=== PATIENT | male | born 1935 | race American Indian/Alaskan Native ===

== ENCOUNTER 2021-11-10 13:24 | Inpatient (IN) | payer MEDICARE ==
[2021-11-10 16:03] LABS: WBC,Urine < 1.0 /HPF (0.0-6.0)
[2021-11-10 16:05] LABS: Color,Urine Yellow (Yellow)
[2021-11-10 16:06] LABS: Bilirubin,Urine Negative (Negative); Blood,Urine Negative (Negative)
[2021-11-10 16:07] LABS: Urobilinogen,Urine < 2.0 mg/dL (<2.0)
--- NOTE | 2021-11-10 16:07 | XRay Report ---
CHEST 1 VIEW 11/10/2021 3:00 PM INDICATION / CLINICAL INFORMATION: weakness. COMPARISON: None available. FINDINGS: SUPPORT DEVICES: None. HEART / MEDIASTINUM: No significant abnormality. LUNGS / PLEURA: Pleural fluid with associated volume loss/consolidation on the right is moderate. No significant left-sided opacity. No pneumothorax. ADDITIONAL FINDINGS: No significant additional findings. IMPRESSION: Right-sided pleural effusion with associated volume loss/consolidation. Signer Name: Mac Castaneda MD Signed: 11/10/2021 4:03 PM Workstation Name: [id number]
--- NOTE | 2021-11-10 16:35 | Emergency Department Report ---
ED General Adult HPI - General Chief complaint: Weakness Stated complaint: FAILURE TO THRIVE Time Seen by Provider: 11/10/21 14:09 Source: patient, EMS Mode of arrival: Stretcher Limitations: Physical Limitation - History of Present Illness Initial comments: The patient presents to the emergency department with his daughter for evaluation for generalized weakness and failure to thrive per the daughter. Patient has a history of prostate cancer as well as renal cancer that has mets testifies to the liver. The patient received his oncology care from [facility] and is on a oral regimen for his cancer. The patient has a history of a right nephrectomy. In June of this year the patient was transferred from [facility] to [place] for a for a brain bleed. In July of this year the patient had a femoral popliteal bypass done at [facility] by Dr. Lyles. This was followed by an admission to [facility] in September of this year for dehydration. The patient has been at home receiving home health care since October 25. The daughter states at times the patient is confused but on my exam he is able to answer questions. He has no complaints besides he does not feel well states he is very weak. -: Gradual Severity scale (0 -10): 0 Consistency: constant Improves with: none Worsens with: none Associated Symptoms: denies other symptoms Treatments Prior to Arrival: none - Related Data Allergies Allergy/AdvReac Type Severity Reaction Status Date / Time No Known Allergies Allergy Verified 11/10/21 13:45 ED Review of Systems ROS: Stated complaint: FAILURE TO THRIVE Other details as noted in HPI Constitutional: weakness. denies: chills, fever Eyes: denies: eye pain, eye discharge, vision change ENT: denies: ear pain, throat pain Respiratory: denies: cough, shortness of breath, wheezing Cardiovascular: denies: chest pain, palpitations Endocrine: no symptoms reported Gastrointestinal: denies: abdominal pain, nausea, diarrhea Genitourinary: denies: urgency, dysuria Musculoskeletal: denies: back pain, joint swelling, arthralgia Skin: denies: rash, lesions Neurological: denies: headache, weakness, paresthesias Psychiatric: denies: anxiety, depression Hematological/Lymphatic: denies: easy bleeding, easy bruising ED Past Medical Hx - Past Medical History Previous Medical History?: Yes Hx Hypertension: Yes Hx Heart Attack/AMI: Yes (2019) Hx Liver Disease: Yes Hx of Cancer: Yes (Kidney, Prostate and spots on Lungs) Hx Arthritis: Yes - Surgical History Past Surgical History?: Yes Hx Coronary Stent: No Hx Open Heart Surgery: No Hx Internal Defibrillator: No Hx Cholecystectomy: No Hx Appendectomy: No Hx Breast Surgery: No - Social History Smoking Status: Former Smoker Substance Use Type: None ED Physical Exam - General Limitations: Physical Limitation General appearance: alert, in no apparent distress - Head Head exam: Present: atraumatic, normocephalic - Eye Eye exam: Present: normal appearance, PERRL, EOMI - ENT ENT exam: Present: mucous membranes dry - Neck Neck exam: Present: normal inspection - Respiratory Respiratory exam: Present: decreased breath sounds. Absent: respiratory distress - Cardiovascular Cardiovascular Exam: Present: normal rhythm, tachycardia - GI/Abdominal GI/Abdominal exam: Present: soft, normal bowel sounds. Absent: distended, tenderness - Neurological Exam Neurological exam: Present: alert, oriented X3, CN II-XII intact. Absent: motor sensory deficit - Psychiatric Psychiatric exam: Present: normal affect, normal mood ED Course Vital Signs 11/10/21 11/10/21 11/10/21 13:53 14:00 14:10 Temperature 97.4 F L Pulse Rate 94 H 89 88 Respiratory 13 16 14 Rate Blood Pressure 109/57 105/63 Blood Pressure 105/63 [Left] O2 Sat by Pulse 98 97 Oximetry 11/10/21 11/10/21 11/10/21 14:16 14:30 14:46 Temperature Pulse Rate 90 86 87 Respiratory 14 20 15 Rate Blood Pressure 105/63 99/58 105/59 Blood Pressure [Left] O2 Sat by Pulse 98 99 97 Oximetry 11/10/21 11/10/21 11/10/21 15:00 15:15 15:30 Temperature Pulse Rate 86 87 91 H Respiratory 12 14 20 Rate Blood Pressure 101/54 106/62 112/58 Blood Pressure [Left] O2 Sat by Pulse 98 98 94 Oximetry 11/10/21 11/10/21 11/10/21 15:46 16:00 16:15 Temperature Pulse Rate 87 86 84 Respiratory 12 13 14 Rate Blood Pressure 114/59 109/62 Blood Pressure 109/62 [Left] O2 Sat by Pulse 88 99 98 Oximetry 11/10/21 11/10/21 11/10/21 16:16 16:30 16:46 Temperature Pulse Rate 87 87 87 Respiratory 30 H 17 19 Rate Blood Pressure 105/59 105/61 97/61 Blood Pressure [Left] O2 Sat by Pulse 98 96 97 Oximetry 11/10/21 11/10/21 11/10/21 17:00 18:00 18:16 Temperature Pulse Rate 88 87 88 Respiratory 14 13 Rate Blood Pressure 105/61 97/61 105/58 Blood Pressure [Left] O2 Sat by Pulse 99 99 Oximetry 11/10/21 11/10/21 11/10/21 18:30 18:45 19:00 Temperature Pulse Rate 88 89 88 Respiratory 13 15 14 Rate Blood Pressure 107/58 107/58 107/58 Blood Pressure [Left] O2 Sat by Pulse 95 98 Oximetry 11/10/21 11/10/21 11/10/21 19:16 19:30 19:45 Temperature Pulse Rate 88 88 89 Respiratory 16 15 13 Rate Blood Pressure 119/48 119/48 120/58 Blood Pressure [Left] O2 Sat by Pulse 85 100 100 Oximetry 11/10/21 11/10/21 11/10/21 20:00 20:16 20:30 Temperature Pulse Rate 91 H 88 93 H Respiratory 13 15 13 Rate Blood Pressure 110/65 104/57 115/55 Blood Pressure [Left] O2 Sat by Pulse 100 99 97 Oximetry 11/10/21 11/10/21 11/10/21 20:46 21:00 21:16 Temperature Pulse Rate 90 94 H 89 Respiratory 15 16 17 Rate Blood Pressure 120/60 104/65 118/52 Blood Pressure [Left] O2 Sat by Pulse 98 99 99 Oximetry ED Medical Decision Making - Lab Data Result diagrams: 11/10/21 20:08 11/10/21 15:12 Lab Results 11/10/21 11/10/21 11/10/21 Range/Units 15:12 15:37 19:45 WBC (4.5-11.0) K/mm3 RBC (3.65-5.03) M/mm3 Hgb (11.8-15.2) gm/dl Hct (35.5-45.6) % MCV (84-94) fl MCH (28-32) pg MCHC (32-34) % RDW (13.2-15.2) % Plt Count (140-440) K/mm3 Lymph % (Auto) (13.4-35.0) % [place] % (Auto) (0.0-7.3) % Eos % (Auto) (0.0-4.3) % Baso % (Auto) (0.0-1.8) % Lymph # (Auto) (1.2-5.4) K/mm3 [place] # (Auto) (0.0-0.8) K/mm3 Eos # (Auto) (0.0-0.4) K/mm3 Baso # (Auto) (0.0-0.1) K/mm3 Seg Neutrophils % (40.0-70.0) % Seg Neutrophils # (1.8-7.7) K/mm3 ABG pH 7.442 (7.350-7.450) pH Units ABG pCO2 27.1 mm Hg ABG pO2 70.8 L (80.0-90.0) mm Hg ABG HCO3 18.1 L (20.0-26.0) mmol/L ABG O2 Saturation 96.1 (95.0-99.0) % ABG O2 Content 11.1 (0.0-44) ABG Base Excess -5.2 L (-2.0-3.0) mmol/L ABG Hemoglobin 8.3 L (14.0-18.0) gm/dl ABG Carboxyhemoglobin 1.9 (0.0-5.0) % ABG Methemoglobin 0.4 (0.0-1.5) % Oxyhemoglobin 93.9 L (95.0-99.0) % FiO2 21 % Sodium 136 L (137-145) mmol/L Potassium 4.8 (3.6-5.0) mmol/L Chloride 105.9 (98-107) mmol/L Carbon Dioxide 14 L (22-30) mmol/L Anion Gap 21 mmol/L BUN 26 H (9-20) mg/dL Creatinine 1.4 H (0.8-1.3) mg/dL Estimated GFR 48 ml/min BUN/Creatinine Ratio 19 % Glucose 70 L (75-100) mg/dL Lactic Acid (0.7-2.0) mmol/L Calcium 8.8 (8.4-10.2) mg/dL Magnesium 2.70 H (1.7-2.3) mg/dL Total Bilirubin 0.90 (0.1-1.2) mg/dL AST 21 (5-40) units/L ALT < 5 L (7-56) units/L Alkaline Phosphatase 184 H (35-129) units/L Total Creatine Kinase 67 (55-170) units/L Troponin T 0.034 H (0.00-0.029) ng/mL Total Protein 6.1 L (6.3-8.2) g/dL Albumin 1.8 L (3.9-5) g/dL Albumin/Globulin Ratio 0.4 % Triglycerides 159 H (2-149) mg/dL Cholesterol 148 (50-199) mg/dL LDL Cholesterol Direct 81 (50-130) mg/dL HDL Cholesterol 29 L (40-59) mg/dL Cholesterol/HDL Ratio 5.10 % Urine Color Yellow (Yellow) Urine Turbidity Clear (Clear) Urine pH 7.0 (5.0-7.0) Ur Specific [place] 1.010 (1.003-1.030) Urine Protein 30 mg/dl (Negative) mg/dL Urine Glucose (UA) Negative (Negative) mg/dL Urine Ketones 15 (Negative) mg/dL Urine Blood Negative (Negative) Urine Nitrite Negative (Negative) Ur Reducing Substances Not Reportable Urine Bilirubin Negative (Negative) Urine Ictotest Not Reportable Urine Urobilinogen < 2.0 (<2.0) mg/dL Ur Leukocyte Esterase Negative (Negative) Urine WBC (Auto) < 1.0 (0.0-6.0) /HPF Urine RBC (Auto) 2.0 (0.0-6.0) /HPF U Epithel Cells (Auto) 2.0 (0-13.0) /HPF 11/10/21 11/10/21 Range/Units 20:08 20:08 WBC 4.3 L (4.5-11.0) K/mm3 RBC 2.91 L (3.65-5.03) M/mm3 Hgb 8.6 L (11.8-15.2) gm/dl Hct 28.7 L (35.5-45.6) % MCV 99 H (84-94) fl MCH 30 (28-32) pg MCHC 30 L (32-34) % RDW 18.6 H (13.2-15.2) % Plt Count 140 (140-440) K/mm3 Lymph % (Auto) 21.6 (13.4-35.0) % [place] % (Auto) 8.6 H (0.0-7.3) % Eos % (Auto) 1.5 (0.0-4.3) % Baso % (Auto) 0.4 (0.0-1.8) % Lymph # (Auto) 0.9 L (1.2-5.4) K/mm3 [place] # (Auto) 0.4 (0.0-0.8) K/mm3 Eos # (Auto) 0.1 (0.0-0.4) K/mm3 Baso # (Auto) 0.0 (0.0-0.1) K/mm3 Seg Neutrophils % 67.9 (40.0-70.0) % Seg Neutrophils # 2.9 (1.8-7.7) K/mm3 ABG pH (7.350-7.450) pH Units ABG pCO2 mm Hg ABG pO2 (80.0-90.0) mm Hg ABG HCO3 (20.0-26.0) mmol/L ABG O2 Saturation (95.0-99.0) % ABG O2 Content (0.0-44) ABG Base Excess (-2.0-3.0) mmol/L ABG Hemoglobin (14.0-18.0) gm/dl ABG Carboxyhemoglobin (0.0-5.0) % ABG Methemoglobin (0.0-1.5) % Oxyhemoglobin (95.0-99.0) % FiO2 % Sodium (137-145) mmol/L Potassium (3.6-5.0) mmol/L Chloride (98-107) mmol/L Carbon Dioxide (22-30) mmol/L Anion Gap mmol/L BUN (9-20) mg/dL Creatinine (0.8-1.3) mg/dL Estimated GFR ml/min BUN/Creatinine Ratio % Glucose (75-100) mg/dL Lactic Acid 2.10 H* (0.7-2.0) mmol/L Calcium (8.4-10.2) mg/dL Magnesium (1.7-2.3) mg/dL Total Bilirubin (0.1-1.2) mg/dL AST (5-40) units/L ALT (7-56) units/L Alkaline Phosphatase (35-129) units/L Total Creatine Kinase (55-170) units/L Troponin T (0.00-0.029) ng/mL Total Protein (6.3-8.2) g/dL Albumin (3.9-5) g/dL Albumin/Globulin Ratio % Triglycerides (2-149) mg/dL Cholesterol (50-199) mg/dL LDL Cholesterol Direct (50-130) mg/dL HDL Cholesterol (40-59) mg/dL Cholesterol/HDL Ratio % Urine Color (Yellow) Urine Turbidity (Clear) Urine pH (5.0-7.0) Ur Specific [place] (1.003-1.030) Urine Protein (Negative) mg/dL Urine Glucose (UA) (Negative) mg/dL Urine Ketones (Negative) mg/dL Urine Blood (Negative) Urine Nitrite (Negative) Ur Reducing Substances Urine Bilirubin (Negative) Urine Ictotest Urine Urobilinogen (<2.0) mg/dL Ur Leukocyte Esterase (Negative) Urine WBC (Auto) (0.0-6.0) /HPF Urine RBC (Auto) (0.0-6.0) /HPF U Epithel Cells (Auto) (0-13.0) /HPF - EKG Data -: EKG Interpreted by Mo EKG shows normal: sinus rhythm Rate: normal - Radiology Data Radiology results: report reviewed - Medical Decision Making IV Lasix given Results discussed with the patient's daughter IV antibiotics initiated Critical Care Time: Yes Critical care time in (mins) excluding proc time.: 35 Critical care attestation.: If time is entered above; I have spent that time in minutes in the direct care of this critically ill patient, excluding procedure time. ED Disposition Clinical Impression: Pleural effusion, Hypoxia Disposition: ADMITTED INPATIENT Is pt being admited?: Yes Does the pt Need Aspirin: No Condition: Fair Referrals: PRIMARY CARE, [Primary Care Provider] - 3-5 Days
[2021-11-10 16:47] LABS: Albumin 1.8 g/dL (3.9-5); BUN/Creatinine Ratio 19; Blood Urea Nitrogen 26 mg/dL (9-20); Calcium 8.8 mg/dL (8.4-10.2); Hemolysis Index 32
[2021-11-10 16:51] LABS: Alanine Aminotransferase < 5 units/L (7-56)
[2021-11-10 16:58] LABS: HDL Cholesterol 29 mg/dL (40-59); LDL Cholesterol,Direct 81 mg/dL (50-130)
--- NOTE | 2021-11-10 17:27 | Cat Scan Report ---
CT chest without contrast INDICATION : pleural effusion. TECHNIQUE: Axial imaging performed through the chest without the use of intravenous contrast. All C T scans at this location are performed using CT dose reduction for ALARA by means of automated exposu re control. COMPARISON: Chest x-ray from today FINDINGS: There is a moderate to large right-sided pleural effusion with underlying patchy airspace disease likely at least in part representing compressive atelectasis. Moderate pleural nodularity is seen on the right. Moderate emphysema is present with a few scattered pulmonary nodules throughout celia th lungs worrisome for metastatic disease. The largest referenced nodule is in the left lower lobe me asuring 1.3 x 0.7 cm on image 101 of series 2. Normal heart size. Moderate coronary artery calcification. Several [place] mediastinal and hilar lymph nodes are present. Limited imaging of the upper abdomen shows extensively heterogeneous areas of the liver suggesting un derlying metastatic disease. On bone windows, there are multiple sclerotic metastatic lesions primarily throughout the spine but a lso involving the sternum and a few ribs. IMPRESSION: Findings of metastatic disease as outlined above with moderate to large right-sided pleur al effusion. Signer Name: Maxwell Munoz MD Signed: 11/10/2021 5:23 PM Workstation Name: [id number]
--- NOTE | 2021-11-10 17:31 | Cat Scan Report ---
CT head without contrast INDICATION : ams. TECHNIQUE: Axial imaging performed from the skull apex through the skull base without the use of con trast. All CT scans at this location are performed using CT dose reduction for ALARA by means of aut omated exposure control. COMPARISON: None FINDINGS: Parenchyma: No mass, stroke or hemorrhage. Mild diffuse cerebral atrophy. Mild low density within the periventricular white matter typical of chronic small vessel ischemic change. Ventricles: Ventricles are normal in size and appear symmetric. Soft tissues: Soft tissues including the orbits appear normal. Bones: No acute osseous abnormality. Sinuses: Moderate air-fluid level right maxillary sinus. IMPRESSION: 1. Chronic changes of atrophy and chronic small vessel ischemia. 2. Moderate size air-fluid level right maxillary sinus. Signer Name: Mac Castaneda MD Signed: 11/10/2021 5:26 PM Workstation Name: [id number]
[2021-11-10 20:05] LABS: ABG Base Excess -5.2 mmol/L (-2.0-3.0); ABG HCO3 18.1 mmol/L (20.0-26.0); ABG Methemoglobin 0.4 % (0.0-1.5); ABG Oxygen Saturation 96.1 % (95.0-99.0); ABG PCO2 27.1 mm Hg; ABG PH 7.442 pH Units (7.350-7.450); ABG PO2 70.8 mm Hg (80.0-90.0)
[2021-11-10 20:54] LABS: Hematocrit 28.7 % (35.5-45.6); Hemoglobin 8.6 gm/dl (11.8-15.2); Mean Corpuscular HGB Conc 30 % (32-34); Mean Corpuscular Volume 99 fl (84-94); Platelet Count 140 K/mm3 (140-440); Red Blood Count 2.91 M/mm3 (3.65-5.03); Red Cell Distribution Width 18.6 % (13.2-15.2)
[2021-11-10 20:55] LABS: Basophils % (Auto) 0.4 % (0.0-1.8); Eosinophils % (Auto) 1.5 % (0.0-4.3); Lymphocytes # (Auto) 0.9 K/mm3 (1.2-5.4); Lymphocytes % (Auto) 21.6 % (13.4-35.0); Monocytes % (Auto) 8.6 % (0.0-7.3)
[2021-11-10 20:56] LABS: Eosinophils # (Auto) 0.1 K/mm3 (0.0-0.4); Monocytes # (Auto) 0.4 K/mm3 (0.0-0.8)
[2021-11-10] MEDS ORDERED: CEFEPIME/NS 2 GM/100 ML 2 GM/100 ML BAG IV ONE (22:24)
[2021-11-10] MEDS ORDERED: FUROSEMIDE 40 MG/4 ML INJ IV ONE (22:34)
[2021-11-10] MEDS ORDERED: MORPHINE 2 MG/1 ML INJ IV PRN (22:59)
[2021-11-10] MEDS ORDERED: ACETAMINOPHEN 325 MG TAB PO PRN (22:59)
[2021-11-10] MEDS ORDERED: MORPHINE 4 MG/1 ML INJ IV PRN (22:59)
[2021-11-10] MEDS ORDERED: ONDANSETRON 4 MG/2 ML INJ IV PRN (22:59)
[2021-11-10] MEDS ORDERED: ALBUTEROL 2.5 MG/3 ML NEBU IH PRN (22:59)
--- NOTE | 2021-11-10 23:05 | History and Physical Report ---
History of Present Illness Date of examination: 11/10/21 Date of admission: 11/10/21 Chief complaint: Weakness Hypoxia Failure to thrive History of present illness: 86 years old male with history of renal cancer as well as prostate cancer mets to the liver was brought to the emergency room with his daughter for evaluation for generalized weakness and failure to thrive per the daughter. The patient received his oncology care from [facility] and is on a oral regimen for his cancer. The patient has a history of a right nephrectomy. In June of this year the patient was transferred from [facility] to [place] for a for a brain bleed. In July of this year the patient had a femoral popliteal bypass done at [facility] by Dr. Lyles. This was followed by an admission to [facility] in September of this year for dehydration. The patient has been at home receiving home health care since October 25. The daughter states at times the patient is confused but on my exam he is able to answer questions. He has no complaints besides he does not feel well states he is very weak. In the emergency room CT scan of the chest shows metastatic disease with moderate to large right-sided pleural effusion, patient also hypoxic. We are going to admit the patient, we will put the patient on neb treatment and Lasix and consult nutritional evaluation Past History Past Medical History: acute ID, arthritis, hypertension, liver disease (Hx of Cancer: Yes (Kidney, Prostate and spots on Lungs)) Past Surgical History: No surgical history Social history: smoking Family history: hypertension Medications and Allergies Allergies Allergy/AdvReac Type Severity Reaction Status Date / Time No Known Allergies Allergy Verified 11/10/21 13:45 Review of Systems All systems: negative Constitutional: fatigue, weakness, malaise, lethargy, other (Shortness of breath) Exam - Constitutional Vitals: Temp Pulse Resp BP Pulse Ox 97.4 F L 94 H 19 117/62 99 11/10/21 14:10 11/10/21 22:30 11/10/21 22:30 11/10/21 22:30 11/10/21 22:30 General appearance: Present: no acute distress, well-nourished - EENT Eyes: Present: PERRL ENT: hearing intact, clear oral mucosa - Neck Neck: Present: supple, normal ROM - Respiratory Respiratory effort: normal Respiratory: bilateral: diminished - Cardiovascular Heart Sounds: Present: S1 & S2. Absent: rub, click - Extremities Extremities: pulses symmetrical, No edema Peripheral Pulses: within normal limits - Abdominal General gastrointestinal: Present: soft, non-tender, non-distended, normal bowel sounds Male genitourinary: Present: normal - Integumentary Integumentary: Present: clear, warm, dry - Musculoskeletal Musculoskeletal: gait normal, strength equal bilaterally - Psychiatric Psychiatric: appropriate mood/affect, intact judgment & insight - Neurologic Neurologic: CNII-XII intact, moves all extremities HEART Score - HEART Score Troponin: Troponin T 0.034 ng/mL (0.00-0.029) H 11/10/21 15:12 Results - Labs CBC & Chem 7: 11/10/21 20:08 11/10/21 15:12 Labs: Laboratory Last Values WBC 4.3 K/mm3 (4.5-11.0) L 11/10/21 20:08 RBC 2.91 M/mm3 (3.65-5.03) L 11/10/21 20:08 Hgb 8.6 gm/dl (11.8-15.2) L 11/10/21 20:08 Hct 28.7 % (35.5-45.6) L 11/10/21 20:08 MCV 99 fl (84-94) H 11/10/21 20:08 MCH 30 pg (28-32) 11/10/21 20:08 MCHC 30 % (32-34) L 11/10/21 20:08 RDW 18.6 % (13.2-15.2) H 11/10/21 20:08 Plt Count 140 K/mm3 (140-440) 11/10/21 20:08 Lymph % (Auto) 21.6 % (13.4-35.0) 11/10/21 20:08 [place] % (Auto) 8.6 % (0.0-7.3) H 11/10/21 20:08 Eos % (Auto) 1.5 % (0.0-4.3) 11/10/21 20:08 Baso % (Auto) 0.4 % (0.0-1.8) 11/10/21 20:08 Lymph # (Auto) 0.9 K/mm3 (1.2-5.4) L 11/10/21 20:08 [place] # (Auto) 0.4 K/mm3 (0.0-0.8) 11/10/21 20:08 Eos # (Auto) 0.1 K/mm3 (0.0-0.4) 11/10/21 20:08 Baso # (Auto) 0.0 K/mm3 (0.0-0.1) 11/10/21 20:08 Seg Neutrophils % 67.9 % (40.0-70.0) 11/10/21 20:08 Seg Neutrophils # 2.9 K/mm3 (1.8-7.7) 11/10/21 20:08 ABG pH 7.442 pH Units (7.350-7.450) 11/10/21 19:45 ABG pCO2 27.1 mm Hg 11/10/21 19:45 ABG pO2 70.8 mm Hg (80.0-90.0) L 11/10/21 19:45 ABG HCO3 18.1 mmol/L (20.0-26.0) L 11/10/21 19:45 ABG O2 Saturation 96.1 % (95.0-99.0) 11/10/21 19:45 ABG O2 Content 11.1 (0.0-44) 11/10/21 19:45 ABG Base Excess -5.2 mmol/L (-2.0-3.0) L 11/10/21 19:45 ABG Hemoglobin 8.3 gm/dl (14.0-18.0) L 11/10/21 19:45 ABG Carboxyhemoglobin 1.9 % (0.0-5.0) 11/10/21 19:45 ABG Methemoglobin 0.4 % (0.0-1.5) 11/10/21 19:45 Oxyhemoglobin 93.9 % (95.0-99.0) L 11/10/21 19:45 FiO2 21 % 11/10/21 19:45 Sodium 136 mmol/L (137-145) L 11/10/21 15:12 Potassium 4.8 mmol/L (3.6-5.0) 11/10/21 15:12 Chloride 105.9 mmol/L (98-107) 11/10/21 15:12 Carbon Dioxide 14 mmol/L (22-30) L 11/10/21 15:12 Anion Gap 21 mmol/L 11/10/21 15:12 BUN 26 mg/dL (9-20) H 11/10/21 15:12 Creatinine 1.4 mg/dL (0.8-1.3) H 11/10/21 15:12 Estimated GFR 48 ml/min 11/10/21 15:12 BUN/Creatinine Ratio 19 % 11/10/21 15:12 Glucose 70 mg/dL (75-100) L 11/10/21 15:12 Lactic Acid 2.10 mmol/L (0.7-2.0) H* 11/10/21 20:08 Calcium 8.8 mg/dL (8.4-10.2) 11/10/21 15:12 Magnesium 2.70 mg/dL (1.7-2.3) H 11/10/21 15:12 Total Bilirubin 0.90 mg/dL (0.1-1.2) 11/10/21 15:12 AST 21 units/L (5-40) 11/10/21 15:12 ALT < 5 units/L (7-56) L 11/10/21 15:12 Alkaline Phosphatase 184 units/L (35-129) H 11/10/21 15:12 Total Creatine Kinase 67 units/L (55-170) 11/10/21 15:12 Troponin T 0.034 ng/mL (0.00-0.029) H 11/10/21 15:12 Total Protein 6.1 g/dL (6.3-8.2) L 11/10/21 15:12 Albumin 1.8 g/dL (3.9-5) L 11/10/21 15:12 Albumin/Globulin Ratio 0.4 % 11/10/21 15:12 Triglycerides 159 mg/dL (2-149) H 11/10/21 15:12 Cholesterol 148 mg/dL (50-199) 11/10/21 15:12 LDL Cholesterol Direct 81 mg/dL (50-130) 11/10/21 15:12 HDL Cholesterol 29 mg/dL (40-59) L 11/10/21 15:12 Cholesterol/HDL Ratio 5.10 % 11/10/21 15:12 Urine Color Yellow (Yellow) 11/10/21 15:37 Urine Turbidity Clear (Clear) 11/10/21 15:37 Urine pH 7.0 (5.0-7.0) 11/10/21 15:37 Ur Specific [place] 1.010 (1.003-1.030) 11/10/21 15:37 Urine Protein 30 mg/dl mg/dL (Negative) 11/10/21 15:37 Urine Glucose (UA) Negative mg/dL (Negative) 11/10/21 15:37 Urine Ketones 15 mg/dL (Negative) 11/10/21 15:37 Urine Blood Negative (Negative) 11/10/21 15:37 Urine Nitrite Negative (Negative) 11/10/21 15:37 Ur Reducing Substances Not Reportable 11/10/21 15:37 Urine Bilirubin Negative (Negative) 11/10/21 15:37 Urine Ictotest Not Reportable 11/10/21 15:37 Urine Urobilinogen < 2.0 mg/dL (<2.0) 11/10/21 15:37 Ur Leukocyte Esterase Negative (Negative) 11/10/21 15:37 Urine WBC (Auto) < 1.0 /HPF (0.0-6.0) 11/10/21 15:37 Urine RBC (Auto) 2.0 /HPF (0.0-6.0) 11/10/21 15:37 U Epithel Cells (Auto) 2.0 /HPF (0-13.0) 11/10/21 15:37 Microbiology: Microbiology 11/10/21 20:14 Peripheral/Venous Blood Culture - Preliminary Culture in Progress 11/10/21 20:08 Peripheral/Venous Blood Culture - Preliminary Culture in Progress - Imaging and Cardiology Chest x-ray: report reviewed CT scan - chest: report reviewed CT Scan - head: report reviewed Assessment and Plan VTE prophylaxis?: Mechanical Plan of care discussed with patient/family: Yes - Patient Problems (1) Pleural effusion Current Visit: Yes Status: Acute Plan to address problem: Admit the patient to the medical floor Telemetry. Oxygen by nasal cannula 3 L/min. Albuterol via nebulizer every 4 hours as needed. DuoNeb by nebulizer every 4 hours as needed. Lasix 40 mg IV daily. Consult interventional radiology for thoracentesis (2) Hypertension Current Visit: Yes Status: Acute Plan to address problem: Hydralazine 10 mg IV every 6 hours as needed. We continue the home medication (3) Failure to thrive Current Visit: Yes Status: Acute Plan to address problem: Will consult nutritional evaluation for malnutrition. We will continue the home medication (4) Prostate cancer Current Visit: Yes Status: Acute Plan to address problem: Patient has a history of prostate cancer and renal cancer mets to the liver. Outpatient follow-up with cancer treatment center (5) Hypoxia Current Visit: Yes Status: Acute Plan to address problem: Oxygen by nasal cannula 3 L/min. Albuterol via nebulizer every 4 hours as needed. DuoNeb by nebulizer every 4 hours as needed. Lasix 40 mg IV daily. Consult interventional radiology for thoracentesis (6) Cancer of kidney Current Visit: Yes Status: Acute Plan to address problem: Patient has a history of prostate cancer and renal cancer mets to the liver. Outpatient follow-up with cancer treatment center (7) DVT prophylaxis Current Visit: Yes Status: Acute
[2021-11-10] MEDS ORDERED: hydrALAZINE 20 MG/1 ML INJ IV PRN (23:09)
[2021-11-11] MEDS: IPRATROPIUM/ALBUTEROL SULFATE 3 ML AMPUL.NEB IH SCH ×4 (02:27→19:37)
[2021-11-11 04:29] LABS: Basophils % (Auto) 0.5 % (0.0-1.8); Eosinophils # (Auto) 0.1 K/mm3 (0.0-0.4); Eosinophils % (Auto) 1.6 % (0.0-4.3); Hematocrit 24.7 % (35.5-45.6); Lymphocytes # (Auto) 1.1 K/mm3 (1.2-5.4); Lymphocytes % (Auto) 24.1 % (13.4-35.0); Mean Corpuscular HGB Conc 32 % (32-34); Mean Corpuscular Volume 96 fl (84-94); Monocytes # (Auto) 0.4 K/mm3 (0.0-0.8); Monocytes % (Auto) 8.7 % (0.0-7.3); Platelet Count 137 K/mm3 (140-440); Red Blood Count 2.57 M/mm3 (3.65-5.03); Red Cell Distribution Width 18.2 % (13.2-15.2)
[2021-11-11 04:51] LABS: Calcium 8.8 mg/dL (8.4-10.2)
[2021-11-11] MEDS ORDERED: FAMOTIDINE 20 MG TAB ONE (09:26)
[2021-11-11] MEDS: FUROSEMIDE 40 MG/4 ML INJ IV SCH (09:58)
[2021-11-11] MEDS: FAMOTIDINE 10 MG TAB PO SCH ×2 (09:58→21:24)
--- NOTE | 2021-11-11 10:07 | Electrocardiograph Report ---
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
[2021-11-11] MEDS ORDERED: LIDOCAINE (1%) 10 MG/1 ML VIAL 20 ML MDV ONE (14:20)
--- NOTE | 2021-11-11 14:59 | Procedure Note ---
Date of procedure: 11/11/21 Pre-op diagnosis: R pleural effusion Post-op diagnosis: same Procedure: US guided thoracentesis Findings: See radiology report Anesthesia: local Surgeon: IVONNE ESCOBAR Estimated blood loss: none Pathology: none Condition: stable Disposition: floor
[2021-11-11] MEDS ORDERED: SODIUM FERRIC GLUCON/SUCRO 125 MG in SODIUM CHLORIDE 0.9% 100 ML IV ONE (15:00)
--- NOTE | 2021-11-11 15:23 | XRay Report ---
CHEST 1 VIEW INDICATION: post thoracentesis. COMPARISON: Yesterday FINDINGS: SUPPORT DEVICES: None. HEART: Within normal limits. LUNGS/PLEURA: Large right-sided pleural effusion has been completely evacuated with no significant re sidual fluid and no pneumothorax. Clear lungs. ADDITIONAL FINDINGS: None. IMPRESSION: 1. Significantly improved exam. Signer Name: Maxwell Munoz MD Signed: 11/11/2021 3:19 PM Workstation Name: [id number]
--- NOTE | 2021-11-11 15:23 | Ultrasound Report ---
Ultrasound-guided thoracentesis HISTORY: right pleural effusion. COMPARISON: Chest x-ray from yesterday PROCEDURE: The risks (including but not limited to bleeding, infection, and pneumothorax) and benefi ts were explained to the patient and informed consent was obtained. A time out procedure was perform ed. Ultrasound was used to evaluate the large right pleural effusion and locate the optimal site for need le entry. Once the skin was marked, the procedure site was prepped and draped in the usual sterile f ashion and lidocaine was used for local anesthesia. A skin matt was made and a 6-Setswana thoracentesi s catheter was placed. The patient was monitored closely throughout the procedure, and a total of 15 00 mL of thin yellow fluid was aspirated. The patient tolerated the procedure well with no complications. A post-procedure chest x-ray was imm ediately ordered. IMPRESSION: Successful thoracentesis as above with a total of 1500 mL of thin yellow fluid aspirated. Signer Name: Maxwell Munoz MD Signed: 11/11/2021 3:19 PM Workstation Name: [id number]
--- NOTE | 2021-11-11 16:28 | Progress Note ---
Assessment and Plan Assessment and plan: #Right pleural effusion #Hypoxiaresolved Likely secondary to metastatic renal carcinoma Status post ultrasound guided thoracentesis with removal of 1.6 L of yellow thin fluid. Patient should discuss with outpatient oncologist about possible placement of a Pleurx catheter, as pleural effusions are becoming more frequent. Discontinuing IV Lasix. Continue to monitor. #Failure to thrive #Metastatic renal cancer #Prostate cancer Continue oral chemotherapy. Patient will continue to follow-up with outpatient oncologist upon discharge. #Advanced care planning -Disease education conducted, care plan discussed, diagnoses discussed, prognosis discussed, and patient acknowledges understanding with care plan -Time: +30 min #Discharge planning - Patient is pending resolution of symptoms - Case management has been made aware. - Discharge is tentatively tomorrow Disposition Plan: Pending possible discharge tomorrow Total Time Spent with Patient (Minutes): 45 min History Interval history: No acute events overnight. Hospitalist Physical - Constitutional Vitals: Temp Pulse Resp BP Pulse Ox 97.6 F 88 26 H 109/59 98 11/11/21 08:18 11/11/21 12:00 11/11/21 12:33 11/11/21 08:18 11/11/21 12:33 General appearance: Present: no acute distress, well-nourished - EENT Eyes: Present: PERRL, EOM intact ENT: hearing intact, clear oral mucosa, dentition normal - Neck Neck: Present: supple, normal ROM - Respiratory Respiratory effort: normal Respiratory: right: diminished (loss of breath sounds) - Cardiovascular Rhythm: regular Heart Sounds: Present: S1 & S2 - Extremities Extremities: no ischemia, pulses intact, pulses symmetrical, No edema, normal temperature, normal color Peripheral Pulses: within normal limits - Abdominal General gastrointestinal: soft, non-tender, non-distended, normal bowel sounds - Integumentary Integumentary: Present: clear, warm, dry - Psychiatric Psychiatric: appropriate mood/affect, cooperative - Neurologic Neurologic: CNII-XII intact, other (alert and oriented x3) - Allied Health Allied health notes reviewed: nursing HEART Score - HEART Score Troponin: Troponin T 0.034 ng/mL (0.00-0.029) H 11/10/21 15:12 Results - Labs CBC & Chem 7: 11/11/21 03:47 11/11/21 03:47 Labs: Laboratory Last Values WBC 4.6 K/mm3 (4.5-11.0) 11/11/21 03:47 RBC 2.57 M/mm3 (3.65-5.03) L 11/11/21 03:47 Hgb 8.0 gm/dl (11.8-15.2) L 11/11/21 03:47 Hct 24.7 % (35.5-45.6) L 11/11/21 03:47 MCV 96 fl (84-94) H 11/11/21 03:47 MCH 31 pg (28-32) 11/11/21 03:47 MCHC 32 % (32-34) 11/11/21 03:47 RDW 18.2 % (13.2-15.2) H 11/11/21 03:47 Plt Count 137 K/mm3 (140-440) L 11/11/21 03:47 Lymph % (Auto) 24.1 % (13.4-35.0) 11/11/21 03:47 Wetzel % (Auto) 8.7 % (0.0-7.3) H 11/11/21 03:47 Eos % (Auto) 1.6 % (0.0-4.3) 11/11/21 03:47 Baso % (Auto) 0.5 % (0.0-1.8) 11/11/21 03:47 Lymph # (Auto) 1.1 K/mm3 (1.2-5.4) L 11/11/21 03:47 Wetzel # (Auto) 0.4 K/mm3 (0.0-0.8) 11/11/21 03:47 Eos # (Auto) 0.1 K/mm3 (0.0-0.4) 11/11/21 03:47 Baso # (Auto) 0.0 K/mm3 (0.0-0.1) 11/11/21 03:47 Seg Neutrophils % 65.1 % (40.0-70.0) 11/11/21 03:47 Seg Neutrophils # 3.0 K/mm3 (1.8-7.7) 11/11/21 03:47 ABG pH 7.442 pH Units (7.350-7.450) 11/10/21 19:45 ABG pCO2 27.1 mm Hg 11/10/21 19:45 ABG pO2 70.8 mm Hg (80.0-90.0) L 11/10/21 19:45 ABG HCO3 18.1 mmol/L (20.0-26.0) L 11/10/21 19:45 ABG O2 Saturation 96.1 % (95.0-99.0) 11/10/21 19:45 ABG O2 Content 11.1 (0.0-44) 11/10/21 19:45 ABG Base Excess -5.2 mmol/L (-2.0-3.0) L 11/10/21 19:45 ABG Hemoglobin 8.3 gm/dl (14.0-18.0) L 11/10/21 19:45 ABG Carboxyhemoglobin 1.9 % (0.0-5.0) 11/10/21 19:45 ABG Methemoglobin 0.4 % (0.0-1.5) 11/10/21 19:45 Oxyhemoglobin 93.9 % (95.0-99.0) L 11/10/21 19:45 FiO2 21 % 11/10/21 19:45 Sodium 140 mmol/L (137-145) 11/11/21 03:47 Potassium 4.1 mmol/L (3.6-5.0) 11/11/21 03:47 Chloride 106.9 mmol/L (98-107) 11/11/21 03:47 Carbon Dioxide 16 mmol/L (22-30) L 11/11/21 03:47 Anion Gap 21 mmol/L 11/11/21 03:47 BUN 27 mg/dL (9-20) H 11/11/21 03:47 Creatinine 1.4 mg/dL (0.8-1.3) H 11/11/21 03:47 Estimated GFR 58 ml/min 11/11/21 03:47 BUN/Creatinine Ratio 19 % 11/11/21 03:47 Glucose 100 mg/dL (75-100) 11/11/21 03:47 Lactic Acid 1.90 mmol/L (0.7-2.0) 11/10/21 23:05 Calcium 8.8 mg/dL (8.4-10.2) 11/11/21 03:47 Magnesium 2.70 mg/dL (1.7-2.3) H 11/10/21 15:12 Total Bilirubin 0.90 mg/dL (0.1-1.2) 11/10/21 15:12 AST 21 units/L (5-40) 11/10/21 15:12 ALT < 5 units/L (7-56) L 11/10/21 15:12 Alkaline Phosphatase 184 units/L (35-129) H 11/10/21 15:12 Total Creatine Kinase 67 units/L (55-170) 11/10/21 15:12 Troponin T 0.034 ng/mL (0.00-0.029) H 11/10/21 15:12 Total Protein 6.1 g/dL (6.3-8.2) L 11/10/21 15:12 Albumin 1.8 g/dL (3.9-5) L 11/10/21 15:12 Albumin/Globulin Ratio 0.4 % 11/10/21 15:12 Triglycerides 159 mg/dL (2-149) H 11/10/21 15:12 Cholesterol 148 mg/dL (50-199) 11/10/21 15:12 LDL Cholesterol Direct 81 mg/dL (50-130) 11/10/21 15:12 HDL Cholesterol 29 mg/dL (40-59) L 11/10/21 15:12 Cholesterol/HDL Ratio 5.10 % 11/10/21 15:12 Urine Color Yellow (Yellow) 11/10/21 15:37 Urine Turbidity Clear (Clear) 11/10/21 15:37 Urine pH 7.0 (5.0-7.0) 11/10/21 15:37 Ur Specific [place] 1.010 (1.003-1.030) 11/10/21 15:37 Urine Protein 30 mg/dl mg/dL (Negative) 11/10/21 15:37 Urine Glucose (UA) Negative mg/dL (Negative) 11/10/21 15:37 Urine Ketones 15 mg/dL (Negative) 11/10/21 15:37 Urine Blood Negative (Negative) 11/10/21 15:37 Urine Nitrite Negative (Negative) 11/10/21 15:37 Ur Reducing Substances Not Reportable 11/10/21 15:37 Urine Bilirubin Negative (Negative) 11/10/21 15:37 Urine Ictotest Not Reportable 11/10/21 15:37 Urine Urobilinogen < 2.0 mg/dL (<2.0) 11/10/21 15:37 Ur Leukocyte Esterase Negative (Negative) 11/10/21 15:37 Urine WBC (Auto) < 1.0 /HPF (0.0-6.0) 11/10/21 15:37 Urine RBC (Auto) 2.0 /HPF (0.0-6.0) 11/10/21 15:37 U Epithel Cells (Auto) 2.0 /HPF (0-13.0) 11/10/21 15:37 Microbiology: Microbiology 11/10/21 20:14 Peripheral/Venous Blood Culture - Preliminary Culture in Progress 11/10/21 20:08 Peripheral/Venous Blood Culture - Preliminary Culture in Progress Urias/IV: Voiding Method Condom Catheter Active Medications - Current Medications Current Medications: Generic Name Dose Route Start Last Admin Trade Name Freq PRN Reason Stop Dose Admin Acetaminophen 650 mg 11/10/21 22:59 Acetaminophen 325 Mg Tab PO Q4H PRN Pain MILD(1-3)/Fever >100.5/STROUD Albuterol 2.5 mg 11/10/21 22:59 Albuterol 2.5 Mg/3 Ml Nebu IH Q3HRT PRN Shortness Of Breath Albuterol/Ipratropium 1 ampul 11/11/21 02:00 11/11/21 13:45 Ipratropium/Albuterol Sulfate 3 Ml Ampul.Neb IH Not Given Q6HRT AGUILA Famotidine 10 mg 11/11/21 10:00 11/11/21 09:58 Famotidine 10 Mg Tab PO 10 mg BID AGUILA Administration Furosemide 40 mg 11/11/21 10:00 11/11/21 09:58 Furosemide 40 Mg/4 Ml Inj IV 40 mg QDAY AGUILA Administration Hydralazine HCl 10 mg 11/10/21 23:09 Hydralazine 20 Mg/1 Ml Inj IV Q6H PRN Blood Pressure Miscellaneous Medication 0 cap 11/11/21 18:00 Enzalutamide PO 4XD AGUILA Morphine Sulfate 2 mg 11/10/21 22:59 Morphine 2 Mg/1 Ml Inj IV Q4H PRN Pain, Moderate (4-6) Morphine Sulfate 4 mg 11/10/21 22:59 Morphine 4 Mg/1 Ml Inj IV Q4H PRN Pain , Severe (7-10) Ondansetron HCl 4 mg 11/10/21 22:59 Ondansetron 4 Mg/2 Ml Inj IV Q8H PRN Nausea And Vomiting Sodium Chloride 10 ml 11/11/21 10:00 11/11/21 09:59 Sodium Chloride 0.9% 10 Ml Flush Syringe IV 10 ml BID AGUILA Administration Sodium Chloride 10 ml 11/10/21 22:59 Sodium Chloride 0.9% 10 Ml Flush Syringe IV PRN PRN LINE FLUSH Nutrition/Malnutrition Assess - Dietary Evaluation Nutrition/Malnutrition Findings: Nutrition Notes Start: 11/11/21 15:25 Freq: Status: Active Protocol: Document 11/11/21 15:25 BEST (Rec: 11/11/21 16:00 BEST [id number]) Nutrition Notes Need for Assessment generated from: MD Order,block sawyer,MST, Education Initial or Follow up Assessment Current Diagnosis Hypertension Other Pertinent Diagnosis Thoracentesis s/p Pleural Effusion, Failure to Thrive, Cancer, GA, Arthriti Current Diet Cardiac Diet (since B 11/10), D Suppl (from D 11/11). Labs/Tests 11/11: CO2 16, BUN 27, Crea 1. 4. Pertinent Medications 11/11: Ferric Sodium Gluconate 125mg, others nutritionally unremarkable. 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 Weight Status Appropriate Subjective/Other Information RD consult for skin risk, risk of malnutrition, dietary supplementation and nutrition education assessments. No reports available on Pt's PO intake of meals at the time , will assess at F/U. I will prescribe dietary supplements to compensate for possible poor or insufficient PO intake of meals during LOS. Pt advanced to Room Air, O2 saturation @ 98%, according to Physical Assessment History notes. Pt has missing teeth, according to Physical Assessment History notes. Pt shows no signs of concern for skin risk at the time, according to Physical Assessment History notes. Pt shows Poor appetite for more than 7 days, possible unintentional weight loss occurred recently, Pleural Effusion, weak automatic clipper and stripper, and failure to thrive as signs of concern for severe malnutritiion, according to Physical Assessment History notes, and History & Physical notes. Pt still in critical condition , not a candidate for Nutrition Education at the time, will assess feasibility on F/U. Percent of energy/protein needs met: Prescribed Cardiac Diet provides for energy/protein needs (2,230 Kcal/85 g) during LOS; additionally, Dietary Supplements will compensate for possible poor or insufficient PO intake of meals with 1,050 Kcal and 60 g of protein. Burn Absent Trauma Absent GI Symptoms None Food Allergy No Skin Integrity/Comment Assessment WNL. Minimum of two criteria Yes Energy Intake (non-severe) <75% Estimated Energy Requirement >7 days Interpretation of Weight Loss (non- 1-2% in 1 week severe) Fluid Accumulation Moderate to Severe (severe) Reduced Member Services Coordinator Strength Measurably Reduced (severe) Protein-Calorie Malnutrition Severe #1 Nutrition Diagnosis Malnutrition Etiology Ongoing and concomitant chronic metabolic conditions. As Evidenced by Signs and Symptoms Pt shows Poor appetite for more than 7 days, possible unintentional weight loss occurred recently, Pleural Effusion, weak automatic clipper and stripper, and failure to thrive as signs of concern for severe malnutritiion, according to Physical Assessment History notes, and History & Physical notes. Is patient on ventilator? No Is Patient Ambulatory and/or Out of Bed Yes REE-(Felton-St. Jeor-ambulatory/OOB) [ 1725.789 [id number]] Calculation Used for Recommendations Felton-St or Additional Notes Protein: 1.2-1.5 g/Kg ABW; 82- 102 g/day. Fluids: 1 ml/Kcal, or as per MD. Nutrition Intervention Change Diet Order: Continue Cardiac Diet. Add Supplement/Snack (indicate name/kcal Start 8 fl oz Ensure Enlive; /protein ) TID. Provides kCal: 1,050 Provides Protein (gm) 60 Goal #1 Compensate, through dietary supplementation, for possible poor or insufficient PO intake of meals during LOS. Goal #2 Adjust the dietary intervention to better serve Pt's needs and clinical conditions during LOS. Follow-Up By: 11/18/21 Additional Comments Continue monitoring food tolerance, %PO intake of meals , dietary supplements, and BM.
[2021-11-11] MEDS: ENZALUTAMIDE PO SCH ×2 (18:49→21:21)
[2021-11-12] MEDS: IPRATROPIUM/ALBUTEROL SULFATE 3 ML AMPUL.NEB IH SCH ×3 (02:19→15:56)
[2021-11-12 06:00] LABS: Basophils % (Auto) 0.5 % (0.0-1.8); Eosinophils % (Auto) 1.1 % (0.0-4.3); Hematocrit 28.8 % (35.5-45.6); Hemoglobin 8.6 gm/dl (11.8-15.2); Lymphocytes # (Auto) 0.4 K/mm3 (1.2-5.4); Lymphocytes % (Auto) 12.5 % (13.4-35.0); Mean Corpuscular HGB Conc 30 % (32-34); Mean Corpuscular Volume 99 fl (84-94); Monocytes # (Auto) 0.3 K/mm3 (0.0-0.8); Monocytes % (Auto) 7.4 % (0.0-7.3); Platelet Count 134 K/mm3 (140-440); Red Blood Count 2.92 M/mm3 (3.65-5.03); Red Cell Distribution Width 18.6 % (13.2-15.2)
[2021-11-12 06:22] LABS: Calcium 8.8 mg/dL (8.4-10.2)
[2021-11-12] MEDS ORDERED: POTASSIUM CHLORIDE ER 20 MEQ TAB PO SCH (09:00)
[2021-11-12] MEDS: ENZALUTAMIDE PO SCH ×3 (09:44→17:41)
[2021-11-12] MEDS: FUROSEMIDE 40 MG/4 ML INJ IV SCH (09:46)
[2021-11-12] MEDS: FAMOTIDINE 10 MG TAB PO SCH (09:47)
[2021-11-12] MEDS ORDERED: METOPROLOL SUCCINATE XL 25 MG TAB PO SCH (13:00)
--- NOTE | 2021-11-12 13:06 | Discharge Summary ---
Providers - Providers Date of Admission: 11/10/21 22:59 Date of discharge: 11/12/21 Attending physician: PARISH SALTER MD 11/10/21 23:00 Consult to Dietitian/Nutrition [CONS] Routine Physician Instructions: Reason For Exam: Reason for Consult: Malnutrition 11/10/21 23:09 Consult to Interventional Radiology [CONS] Routine Consulting Provider: YANELY BEARD Reason For Exam: Pleural effusion 11/11/21 13:36 Physical Therapy Evaluation and Treat [CONS] Routine Comment: Reason For Exam: Concern for deconditioning Primary care physician: NATURAL RESOURCES PROFESSOR Hospitalization Reason for admission: Acute hypoxic respiratory failure, right-sided pleural effusion Condition: Fair Pertinent studies: Reviewed. Procedures: Ultrasoundguided thoracentesis Hospital course: Patient is a 86-year-old male past medical history of renal cancer and metastatic prostate attic cancer (mets to liver-receiving presumed palliative chemo), hypertension, arthritis, CAD complicated by acute VT, and tobacco dependence who presented to the ED with his daughter for generalized weakness and worsening shortness of breath. In June 2021, the patient was transferred from [facility] to [facility] for management of brain hemorrhage. In July 2021, the patient had a femoralpopliteal bypass performed at [facility]. Patient's daughter describes him as confused. On presentation, patient was found to be hemodynamically stable. Patient underwent CT chest noncontrast revealing moderate to large right-sided pleural effusion likely secondary to his metastatic disease. The patient underwent ultrasound-guided thoracentesis with removal of 1.6 L of thin yellow fluid. The patient tolerated the procedure well. Patient's daughter was counseled about the overall prognosis of her father (in regards to his metastatic cancer) and how it can manifest with him being fatigued, relatively bedbound, and loss of appetite. The topic of hospice was discussed in detail to better answer questions and provide information about the overall goal of hospice. The patient's daughter will consider it, and she was advised that she can further discuss this with the patient's oncologist. The daughter was also encouraged to discuss possible Pleurx catheter placement (if the patient is a viable candidate) in the setting of more recurrent pleural effusion secondary to metastatic cancer. Patient is medically clear for discharge. Disposition: 01 HOME / SELF CARE / HOMELESS Final Discharge Diagnosis (Prints w/discharge instructions): Moderate to large right sided pleural effusion, acute hypoxic respiratory failure, metastatic renal cancer, history of prostate cancer, failure to thrive. Time spent for discharge: 45 min Core Measure Documentation - Palliative Care Palliative Care/ Comfort Measures: Not Applicable - Core Measures Any of the following diagnoses?: history only Exam - Constitutional Vitals: Temp Pulse Resp BP Pulse Ox 98.1 F 52 L 18 113/64 97 11/12/21 11:55 11/12/21 11:55 11/12/21 11:55 11/12/21 11:55 11/12/21 11:55 General appearance: Present: no acute distress, cachectic - EENT Eyes: Present: PERRL, EOM intact ENT: hearing intact, clear oral mucosa, dentition normal - Neck Neck: Present: supple, normal ROM - Respiratory Respiratory effort: normal Respiratory: bilateral: CTA - Cardiovascular Rhythm: regular Heart Sounds: Present: S1 & S2 - Extremities Extremities: no ischemia, pulses intact, pulses symmetrical, No edema, normal temperature, normal color Peripheral Pulses: within normal limits - Abdominal General gastrointestinal: Present: soft, non-tender, non-distended, normal bowel sounds Male genitourinary: Present: deferred - Rectal Rectal Exam: deferred - Integumentary Integumentary: Present: clear, warm, dry - Musculoskeletal Musculoskeletal: generalized weakness - Psychiatric Psychiatric: appropriate mood/affect, cooperative - Neurologic Neurologic: other (Alert and oriented x2) - Allied Health Allied health notes reviewed: nursing Plan Activity: advance as tolerated Diet: regular Additional Instructions: Patient is a 86-year-old male past medical history of renal cancer and metastatic prostate attic cancer (mets to liver-receiving presumed palliative chemo), hypertension, arthritis, CAD complicated by acute VT, and tobacco dependence who presented to the ED with his daughter for generalized weakness and worsening shortness of breath. In June 2021, the patient was transferred from [facility] to [facility] for management of brain hemorrhage. In July 2021, the patient had a femoralpopliteal bypass performed at [facility]. Patient's daughter describes him as confused. On presentation, patient was found to be hemodynamically stable. Patient underwent CT chest noncontrast revealing moderate to large right-sided pleural effusion likely secondary to his metastatic disease. The patient underwent ultrasound-guided thoracentesis with removal of 1.6 L of thin yellow fluid. The patient tolerated the procedure well. Patient's daughter was counseled about the overall prognosis of her father (in regards to his metastatic cancer) and how it can manifest with him being fatigued, relatively bedbound, and loss of appetite. The topic of hospice was discussed in detail to better answer questions and provide information about the overall goal of hospice. The patient's daughter will consider it, and she was advised that she can further discuss this with the patient's oncolo gist. The daughter was also encouraged to discuss possible Pleurx catheter placement (if the patient is a viable candidate) in the setting of more recurrent pleural effusion secondary to metastatic cancer. Patient is medically clear for discharge. Care Plan Goals: Patient is medically clear for discharge. Assessment: Patient is a 86-year-old male past medical history of renal cancer and metastatic prostate attic cancer (mets to liver-receiving presumed palliative chemo), hypertension, arthritis, CAD complicated by acute VT, and tobacco depend ence who presented to the ED with his daughter for generalized weakness and worsening shortness of breath. In June 2021, the patient was transferred from [facility] to [facility] for management of brain hemorrhage. In July 2021, the patient had a femoralpopliteal bypass performed at [facility]. Patient's daughter describes him as confused. On presentation, patient was found to be hemodynamically stable. Patient underwent CT chest noncontrast revealing moderate to large right-sided pleural effusion likely secondary to his metastatic disease. The patient underwent ultrasound-guided thoracentesis with removal of 1.6 L of thin yellow fluid. The patient tolerated the procedure well. Patient's daughter was counseled about the overall prognosis of her father (in regards to his metastatic cancer) and how it can manifest with him being fatigued, relatively bedbound, and loss of appetite. The topic of hospice was discussed in detail to better answer questions and provide information about the overall goal of hospice. The patient's daughter will consider it, and she was advised that she can further discuss this with the patient's oncologist. The daughter was also encouraged to discuss possible Pleurx catheter placement (if the patient is a viable candidate) in the setting of more recurrent pleural effusion secondary to metastatic cancer. Patient is medically clear for discharge. Follow up with: PRIMARY CARE, [Primary Care Provider] - 3-5 Days
[2021-11-12 16:55] VITALS: BP 126/61
== END 2021-11-12 20:38 | disposition home health service (06) | DRG 686 ==
LOC: EDBD → ED 13:24 → MERGE 22:59 → 4A 22:59
PROVIDERS: ADMIT Hospitalist; ATTEND Student in an Organized Health Care Education/Training Program
PROC: 4A033R1 Measurement of Arterial Saturation, Peripheral, Percutaneous Approach (ICD-10-PCS; principal; 2021-11-10)
PROC: 0W993ZZ Drainage of Right Pleural Cavity, Percutaneous Approach (ICD-10-PCS; 2021-11-11)
DX: C64.1 Malignant neoplasm of right kidney, except renal pelvis (principal); J96.01 Acute respiratory failure with hypoxia; J90 Pleural effusion, not elsewhere classified; C78.7 Secondary malignant neoplasm of liver and intrahepatic bile duct; I25.2 Old myocardial infarction; M19.90 Unspecified osteoarthritis, unspecified site; R62.7 Adult failure to thrive; Z68.22 Body mass index [BMI] 22.0-22.9, adult; Z85.46 Personal history of malignant neoplasm of prostate; Z87.891 Personal history of nicotine dependence; Z82.49 Family history of ischemic heart disease and other diseases of the circulatory system
CPT/HCPCS: 32555; 36415; 70450; 71045; 71250; 80048; 80053; 80061; 81001; 82140; 82550; 82803; 83735; 84484; 85025; 87040; 93005; 94640; G0378; J3490; J0692; J1940; J2916

== ENCOUNTER 2021-11-15 23:35 | Observation (INO) | payer MEDICARE ==
--- NOTE | 2021-11-16 00:53 | Emergency Department Report ---
HPI - General Chief Complaint: Altered Mental Status Time Seen by Provider: 11/16/21 00:22 - [facility] HPI: Room 23 The patient is an 86-year-old male present with a chief complaint of altered mental status. Per patient's family patient has been altered for the past week. Patient currently denies complaints but states he may have felt slightly short of breath for the past day. Patient denies cough or fever. Patient denies nausea vomiting or diarrhea. Patient denies pain of any type. Patient found to be tachycardic in the ED ED Past Medical Hx - Past Medical History Hx of Cancer: Yes (Renal CA status post nephrectomy) - Surgical History Additional Surgical History: Nephrectomy for renal CA - Family History Family history: no significant - Social History Smoking Status: Unknown if ever smoked Substance Use Type: None ED Review of Systems ROS: Stated complaint: AMS Other details as noted in HPI Constitutional: no symptoms reported Eyes: denies: eye pain ENT: denies: throat pain Respiratory: shortness of breath. denies: cough Cardiovascular: denies: chest pain Endocrine: no symptoms reported Gastrointestinal: denies: abdominal pain Genitourinary: denies: dysuria Musculoskeletal: denies: back pain Neurological: denies: headache Physical Exam - Physical Exam Vital Signs: Vital Signs 11/15/21 11/16/21 11/16/21 23:51 00:00 00:03 Temperature 97.2 F L Pulse Rate 126 H 128 H Respiratory 16 23 Rate Blood Pressure 105/69 112/66 O2 Sat by Pulse 99 100 98 Oximetry Physical Exam: GENERAL: The patient is well-developed well-nourished male lying on stretcher not appearing to be in acute distress. [] HEENT: Normocephalic. Atraumatic. Extraocular motions are intact. Patient has moist mucous membranes. NECK: Supple. Trachea midline CHEST/LUNGS: Clear to auscultation. There is no respiratory distress noted. HEART/CARDIOVASCULAR: Regular. There is no tachycardia. There is no gallop rub or murmur. ABDOMEN: Abdomen is soft, nontender. Patient has normal bowel sounds. There is no abdominal distention. SKIN: There is no rash. There is no edema. There is no diaphoresis. NEURO: The patient is awake, alert, and oriented. The patient is cooperative. The patient has no focal neurologic deficits. The patient has normal speech. GCS MUSCULOSKELETAL: There is no evidence of acute injury. ED Course Vital Signs 11/15/21 11/16/21 11/16/21 23:51 00:00 00:03 Temperature 97.2 F L Pulse Rate 126 H 128 H Respiratory 16 23 Rate Blood Pressure 105/69 112/66 O2 Sat by Pulse 99 100 98 Oximetry ED Medical Decision Making - Lab Data Result diagrams: 11/16/21 01:46 11/16/21 01:46 Laboratory Tests 11/16/21 11/16/21 11/16/21 01:46 01:46 01:46 WBC 5.0 RBC 3.04 L Hgb 9.2 L Hct 29.6 L MCV 97 H MCH 30 MCHC 31 L RDW 18.8 H Plt Count 125 L Lymph % (Auto) 24.6 Bates % (Auto) 5.2 Eos % (Auto) 1.7 Baso % (Auto) 0.4 Lymph # (Auto) 1.2 Bates # (Auto) 0.3 Eos # (Auto) 0.1 Baso # (Auto) 0.0 Seg Neutrophils % 68.1 Seg Neutrophils # 3.4 PT 14.3 INR 0.97 D-Dimer Sodium 137 Potassium 4.8 Chloride 100.6 Carbon Dioxide 17 L Anion Gap 24 BUN 31 H Creatinine 1.3 Estimated GFR > 60 BUN/Creatinine Ratio 24 Glucose 102 H Lactic Acid Calcium 10.1 Total Bilirubin 1.00 AST 17 ALT < 5 L Alkaline Phosphatase 189 H Ammonia Total Creatine Kinase 24 L CK-MB (CK-2) 1.1 CK-MB (CK-2) Rel Index 4.5 H Troponin T 0.198 H* NT-Pro-B Natriuret Pep 82535 H Total Protein 7.3 Albumin 2.9 L Albumin/Globulin Ratio 0.7 Triglycerides 204 H Cholesterol 176 LDL Cholesterol Direct 94 HDL Cholesterol 37 L Cholesterol/HDL Ratio 4.75 TSH Free T4 Urine Color Urine Turbidity Urine pH Ur Specific [place] Urine Protein Urine Glucose (UA) Urine Ketones Urine Blood Urine Nitrite Urine Bilirubin Urine Urobilinogen Ur Leukocyte Esterase Urine RBC (Auto) U Epithel Cells (Auto) Plasma/Serum Alcohol 11/16/21 11/16/21 11/16/21 01:46 01:46 01:46 WBC RBC Hgb Hct MCV MCH MCHC RDW Plt Count Lymph % (Auto) Bates % (Auto) Eos % (Auto) Baso % (Auto) Lymph # (Auto) Bates # (Auto) Eos # (Auto) Baso # (Auto) Seg Neutrophils % Seg Neutrophils # PT INR D-Dimer Sodium Potassium Chloride Carbon Dioxide Anion Gap BUN Creatinine Estimated GFR BUN/Creatinine Ratio Glucose Lactic Acid 3.40 H* Calcium Total Bilirubin AST ALT Alkaline Phosphatase Ammonia 13.0 L Total Creatine Kinase CK-MB (CK-2) CK-MB (CK-2) Rel Index Troponin T NT-Pro-B Natriuret Pep Total Protein Albumin Albumin/Globulin Ratio Triglycerides Cholesterol LDL Cholesterol Direct HDL Cholesterol Cholesterol/HDL Ratio TSH 3.060 Free T4 1.17 Urine Color Urine Turbidity Urine pH Ur Specific [place] Urine Protein Urine Glucose (UA) Urine Ketones Urine Blood Urine Nitrite Urine Bilirubin Urine Urobilinogen Ur Leukocyte Esterase Urine RBC (Auto) U Epithel Cells (Auto) Plasma/Serum Alcohol 11/16/21 11/16/21 11/16/21 01:46 02:49 04:12 WBC RBC Hgb Hct MCV MCH MCHC RDW Plt Count Lymph % (Auto) Bates % (Auto) Eos % (Auto) Baso % (Auto) Lymph # (Auto) Bates # (Auto) Eos # (Auto) Baso # (Auto) Seg Neutrophils % Seg Neutrophils # PT INR D-Dimer > 59760 H Sodium Potassium Chloride Carbon Dioxide Anion Gap BUN Creatinine Estimated GFR BUN/Creatinine Ratio Glucose Lactic Acid Calcium Total Bilirubin AST ALT Alkaline Phosphatase Ammonia Total Creatine Kinase CK-MB (CK-2) CK-MB (CK-2) Rel Index Troponin T NT-Pro-B Natriuret Pep Total Protein Albumin Albumin/Globulin Ratio Triglycerides Cholesterol LDL Cholesterol Direct HDL Cholesterol Cholesterol/HDL Ratio TSH Free T4 Urine Color Yellow Urine Turbidity Clear Urine pH 5.0 Ur Specific [place] 1.015 Urine Protein 100 mg/dl Urine Glucose (UA) Negative Urine Ketones Negative Urine Blood Negative Urine Nitrite Negative Urine Bilirubin Negative Urine Urobilinogen < 2.0 Ur Leukocyte Esterase Negative Urine RBC (Auto) 1.0 U Epithel Cells (Auto) 3.0 Plasma/Serum Alcohol < 0.01 - EKG Data -: EKG Interpreted by Me EKG shows normal: sinus rhythm Rate: tachycardia (124 bpm) - EKG Data When compared to previous EKG there are: previous EKG unavailable Interpretation: nonspecific ST-T wave woody - Radiology Data Radiology results: report reviewed (CT chest), image reviewed (CT chest) [facility] [address] [place] [address] Cat Scan Report Signed Patient: CALLIE MATTHEW MR#: [id number] : 1935 Acct:[id number] Age/Sex: 86 / M ADM Date: 11/15/21 Loc: ED Attending Dr: Ordering Physician: MARTELL WEEMS MD Date of Service: 11/16/21 Procedure(s): CT angio chest Accession Number(s): [id number] cc: MARTELL WEEMS MD CTA CHEST WITH CONTRAST INDICATION / CLINICAL INFORMATION: Shortness of breath. TECHNIQUE: Axial CT images were obtained through the chest after injection of 100 cc Omnipaque 300 IV contrast. 3 plane MIP and/or 3D reconstructions were produced. All CT scans at this location are performed using CT dose reduction for ALARA by means of automated exposure control. COMPARISON: One view of the chest performed today. FINDINGS: PULMONARY EMBOLUS: None. THORACIC AORTA: Mild atherosclerotic calcification without acute abnormality. HEART: No significant abnormality. CORONARY ARTERY CALCIFICATION: Present -- Mild. MEDIASTINUM / HOLLI: Mildly enlarged right hilar nodes are seen without other significant abnormalities. PLEURA: There is a small/moderate right pleural effusion. No pneumothorax. LUNGS: Mild atelectasis is seen along the right lower lobe with multiple bilateral solid noncalcified nodules of varying size. A field representative anterior and inferior right lower lobe nodule on image 98 of series 2 measures 2.6 x 1.9 cm. Mild emphysema is seen bilaterally. ADDITIONAL FINDINGS: None. UPPER ABDOMEN: There are multiple suspected hepatic metastases, including a posterior and superior right hepatic lobe mass on image 27 of series 2 measuring 6.8 x 4.6 cm. A subcapsular hepatic versus right subdiaphragmatic mass on image 107 of series 2 measures 5.2 x 3.4 cm. Additional masses are seen posterior to the right hepatic lobe. There are multiple nonspecific left renal lesions of varying attenuation that could represent cystic or solid lesions. Trace ascites is seen along the liver and spleen. There is moderate atherosclerosis. SKELETAL STRUCTURES: Multiple sclerotic osseous metastases are seen along the spine, including sclerosis of the majority of the T12 vertebral body and its posterior elements. IMPRESSION: 1. No CT evidence for pulmonary embolism. 2. Widespread metastatic disease as described above without a distinct primary neoplasm. Please correlate with the patient's history. 3. Additional findings as above. Signer Name: Juan Jose Madrid MD Signed: 11/16/2021 5:02 AM Workstation Name: [id number] Transcribed By: MN Dictated By: Juan Jose Madrid MD Electronically Authenticated By: Juan Jose Madrid MD Signed Date/Time: 11/16/21 0502 DD/ 0455 TD/TT: - Differential Diagnosis UTI, pneumonia, dehydration, Critical care attestation.: If time is entered above; I have spent that time in minutes in the direct care of this critically ill patient, excluding procedure time. ED Disposition Clinical Impression: Altered mental status, Liver metastases, Tachycardia Disposition: ADMITTED INPATIENT Is pt being admited?: Yes Does the pt Need Aspirin: No Condition: Fair Referrals: PRIMARY CARE, [Primary Care Provider] - 3-5 Days Time of Disposition: 05:12 (Care transferred to hospitalist (Dr Yao))
--- NOTE | 2021-11-16 01:27 | XRay Report ---
CHEST 1 VIEW 11/16/2021 12:14 AM INDICATION / CLINICAL INFORMATION: Tachycardia. COMPARISON: None available. FINDINGS: SUPPORT DEVICES: None. HEART / MEDIASTINUM: No significant abnormality. LUNGS / PLEURA: There is a small right pleural effusion with right basilar opacities. The lungs are o therwise clear. No pneumothorax. ADDITIONAL FINDINGS: No significant additional findings. IMPRESSION: Small right pleural effusion with right basilar atelectasis versus other acute infiltrates. Signer Name: Juan Jose Madrid MD Signed: 11/16/2021 1:23 AM Workstation Name: [id number]
--- NOTE | 2021-11-16 01:38 | Cat Scan Report ---
CT HEAD WITHOUT CONTRAST INDICATION / CLINICAL INFORMATION: Altered mental status. TECHNIQUE: All CT scans at this location are performed using CT dose reduction for ALARA by means of automated exposure control. COMPARISON: None available. FINDINGS: BRAIN PARENCHYMA: No acute intracranial hemorrhage. No evidence of recent infarct. No mass effect or midline shift. There is age-appropriate generalized atrophy. VENTRICULAR SYSTEM/EXTRA-AXIAL SPACES: Ventricles are normal for age. No extra-axial fluid collection . ORBITS: Normal as visualized. SKELETAL SYSTEM/SOFT TISSUES: Normal bones and soft tissues. PARANASAL SINUSES/MASTOID AIR CELLS: A small air-fluid level is seen in the right maxillary sinus wit h associated mild mucosal thickening. No other significant abnormality. ADDITIONAL FINDINGS: None. IMPRESSION: 1. No acute intracranial abnormality. 2. Additional findings as above. Signer Name: Juan Jose Madrid MD Signed: 11/16/2021 1:33 AM Workstation Name: [id number]
[2021-11-16 02:26] LABS: Basophils % (Auto) 0.4 % (0.0-1.8); Eosinophils # (Auto) 0.1 K/mm3 (0.0-0.4); Eosinophils % (Auto) 1.7 % (0.0-4.3); Hematocrit 29.6 % (35.5-45.6); Hemoglobin 9.2 gm/dl (11.8-15.2); Lymphocytes # (Auto) 1.2 K/mm3 (1.2-5.4); Lymphocytes % (Auto) 24.6 % (13.4-35.0); Mean Corpuscular HGB Conc 31 % (32-34); Mean Corpuscular Volume 97 fl (84-94); Monocytes # (Auto) 0.3 K/mm3 (0.0-0.8); Monocytes % (Auto) 5.2 % (0.0-7.3); Platelet Count 125 K/mm3 (140-440); Red Blood Count 3.04 M/mm3 (3.65-5.03); Red Cell Distribution Width 18.8 % (13.2-15.2)
[2021-11-16 02:33] LABS: Creatine Kinase MB 1.1 ng/mL (0.0-4.0)
[2021-11-16 02:34] LABS: Alanine Aminotransferase < 5 units/L (7-56); Albumin 2.9 g/dL (3.9-5); BUN/Creatinine Ratio 24; Blood Urea Nitrogen 31 mg/dL (9-20); Calcium 10.1 mg/dL (8.4-10.2); Hemolysis Index 6
[2021-11-16 02:43] LABS: Free T4 (Free Thyroxine) 1.17 ng/dL (0.76-1.46)
[2021-11-16 02:46] LABS: INR 0.97 (0.87-1.13)
[2021-11-16 03:24] LABS: Chol/HDL Ratio 4.75 %; HDL Cholesterol 37 mg/dL (40-59); LDL Cholesterol,Direct 94 mg/dL (50-130)
[2021-11-16 04:48] LABS: Bilirubin,Urine Negative (Negative); Blood,Urine Negative (Negative); Color,Urine Yellow (Yellow); Urobilinogen,Urine < 2.0 mg/dL (<2.0)
[2021-11-16 04:51] LABS: Bacteria,Urine 1+ /HPF (Negative); Mucus,Urine FEW /HPF; WBC,Urine < 1.0 /HPF (0.0-6.0)
--- NOTE | 2021-11-16 05:06 | Cat Scan Report ---
CTA CHEST WITH CONTRAST INDICATION / CLINICAL INFORMATION: Shortness of breath. TECHNIQUE: Axial CT images were obtained through the chest after injection of 100 cc Omnipaque 300 IV contrast. 3 plane MIP and/or 3D reconstructions were produced. All CT scans at this location are per formed using CT dose reduction for ALARA by means of automated exposure control. COMPARISON: One view of the chest performed today. FINDINGS: PULMONARY EMBOLUS: None. THORACIC AORTA: Mild atherosclerotic calcification without acute abnormality. HEART: No significant abnormality. CORONARY ARTERY CALCIFICATION: Present -- Mild. MEDIASTINUM / HOLLI: Mildly enlarged right hilar nodes are seen without other significant abnormalitie s. PLEURA: There is a small/moderate right pleural effusion. No pneumothorax. LUNGS: Mild atelectasis is seen along the right lower lobe with multiple bilateral solid noncalcified nodules of varying size. A dental detail representative anterior and inferior right lower lobe nodule on image 98 of series 2 measures 2.6 x 1.9 cm. Mild emphysema is seen bilaterally. ADDITIONAL FINDINGS: None. UPPER ABDOMEN: There are multiple suspected hepatic metastases, including a posterior and superior ri ght hepatic lobe mass on image 27 of series 2 measuring 6.8 x 4.6 cm. A subcapsular hepatic versus ri ght subdiaphragmatic mass on image 107 of series 2 measures 5.2 x 3.4 cm. Additional masses are seen posterior to the right hepatic lobe. There are multiple nonspecific left renal lesions of varying att enuation that could represent cystic or solid lesions. Trace ascites is seen along the liver and sple en. There is moderate atherosclerosis. SKELETAL STRUCTURES: Multiple sclerotic osseous metastases are seen along the spine, including sclero sis of the majority of the T12 vertebral body and its posterior elements. IMPRESSION: 1. No CT evidence for pulmonary embolism. 2. Widespread metastatic disease as described above without a distinct primary neoplasm. Please corre late with the patient's history. 3. Additional findings as above. Signer Name: Juan Jose Madrid MD Signed: 11/16/2021 5:02 AM Workstation Name: [id number]
[2021-11-16] MEDS ORDERED: cefTRIAXone/NS 1 GM/50 ML 1 GM/50 ML BAG IV ONE (05:11)
[2021-11-16] MEDS ORDERED: AZITHROMYCIN/NS 500 MG/250 ML 500 MG/250 ML BAG IV ONE (05:11)
[2021-11-16] MEDS ORDERED: ACETAMINOPHEN 325 MG TAB PO PRN ×2 (05:15)
[2021-11-16] MEDS ORDERED: traMADol 50 MG TAB PO PRN (05:15)
[2021-11-16] MEDS ORDERED: MORPHINE 4 MG/1 ML INJ IV PRN ×2 (05:15)
[2021-11-16] MEDS ORDERED: MAGNESIUM HYDROXIDE (MOM) ORAL LIQD UDC PO PRN (05:15)
[2021-11-16] MEDS ORDERED: ONDANSETRON 4 MG/2 ML INJ IV PRN (05:15)
[2021-11-16] MEDS ORDERED: SODIUM CHLORIDE 0.9% 1000 ML 1,000 ML IV SCH (05:15)
[2021-11-16] MEDS ORDERED: MORPHINE 2 MG/1 ML INJ IV PRN (05:15)
--- NOTE | 2021-11-16 05:34 | History and Physical Report ---
History of Present Illness Date of examination: 11/16/21 Date of admission: 11/16/2021 Chief complaint: Altered mental status History of present illness: 86-year-old -[place] male with known history of renal cancer status post nephrectomy presenting to the emergency room today for evaluation of changes in mental status. Patient's family was said to have found patient altered and subsequently brought to the emergency room for evaluation. Patient states he has had some mild shortness of breath and cough. He denies any fever or chills, denies any chest pain. Upon arrival in the emergency room today, patient was found to be tachycardic. Work-up in the emergency room today, labs were significant for hemoglobin of 5.2 hematocrit of 29.6. D-dimer was greater than 10,000. Lactic acid was elevated at 3.4. Troponin 0.198. BNP 17,466. Urinalysis was unremarkable. CT of the head did not show any acute findings. Chest x-ray reveals small right pleural effusion with right basilar atelectasis versus other acute infiltrate. CT angiogram of the chest reveals: No evidence of pulmonary embolism. There is widespread hepatic metastatic disease without any distinct primary neuro plasm. Past History Past Medical History: other (Renal cancer status post nephrectomy) Past Surgical History: Other (History of nephrectomy) Social history: no significant social history Family history: no significant family history Medications and Allergies Allergies Allergy/AdvReac Type Severity Reaction Status Date / Time No Known Allergies Allergy Verified 11/16/21 05:27 Active Meds: Active Medications Acetaminophen (Acetaminophen 325 Mg Tab) 650 mg PO Q4H PRN PRN Reason: Pain MILD(1-3)/Fever >100.5/STROUD Acetaminophen (Acetaminophen 325 Mg Tab) 650 mg PO Q6H PRN PRN Reason: Pain, Mild (1-3) Aspirin (Aspirin Ec 325 Mg Tab) 325 mg PO QDAY AGUILA Heparin Sodium (Porcine) (Heparin 5,000 Unit/1 Ml Vial) 5,000 unit SUB-Q Q8HR AGUILA Azithromycin (Zithromax/Ns) 500 mg in 250 mls @ 250 mls/hr IV ONCE ONE; Protocol Stop: 11/16/21 06:10 Ceftriaxone Sodium (Rocephin/Ns 1 Gm/50 Ml) 1 gm in 50 mls @ 100 mls/hr IV ONCE ONE; Protocol Stop: 11/16/21 05:40 Sodium Chloride (Nacl 0.9% 1000 Ml) 1,000 mls @ 125 mls/hr IV DIRECT AGUILA Magnesium Hydroxide (Magnesium Hydroxide (Mom) Oral Liqd Udc) 30 ml PO Q4H PRN PRN Reason: Constipation Morphine Sulfate (Morphine 2 Mg/1 Ml Inj) 2 mg IV Q4H PRN PRN Reason: Pain, Moderate (4-6) Morphine Sulfate (Morphine 4 Mg/1 Ml Inj) 4 mg IV Q4H PRN PRN Reason: Pain , Severe (7-10) Morphine Sulfate (Morphine 4 Mg/1 Ml Inj) 2 mg IV Q5MIN PRN PRN Reason: Chest Pain unrelieved by NTG Ondansetron HCl (Ondansetron 4 Mg/2 Ml Inj) 4 mg IV Q8H PRN PRN Reason: Nausea And Vomiting Sodium Chloride (Sodium Chloride 0.9% 10 Ml Flush Syringe) 10 ml IV BID AGUILA Sodium Chloride (Sodium Chloride 0.9% 10 Ml Flush Syringe) 10 ml IV PRN PRN PRN Reason: LINE FLUSH Tramadol HCl (Tramadol 50 Mg Tab) 50 mg PO Q6H PRN PRN Reason: Pain, Moderate (4-6) Review of Systems Constitutional: no fever, no chills Ears, nose, mouth and throat: no nasal congestion, no sore throat Cardiovascular: no chest pain, no palpitations Respiratory: no cough, no shortness of breath Gastrointestinal: no nausea, no vomiting, no diarrhea, no BRBPR Genitourinary Male: no dysuria, no hematuria, no flank pain Musculoskeletal: no neck pain, no low back pain Integumentary: no rash, no pruritis Neurological: confusion, no headaches Psychiatric: no anxiety, no depression Endocrine: no polyphagia, no polydipsia, no polyuria, no nocturia Exam - Constitutional Vitals: Temp Pulse Resp BP Pulse Ox 97.2 F L 132 H 23 106/63 100 11/15/21 23:51 11/16/21 02:30 11/16/21 02:30 11/16/21 02:30 11/16/21 02:30 General appearance: Present: no acute distress, well-nourished, other (Appears lethargic) - EENT Eyes: Present: PERRL, EOM intact. Absent: scleral icterus ENT: hearing intact, clear oral mucosa, dentition normal - Neck Neck: Present: supple, normal ROM - Respiratory Respiratory effort: normal Respiratory: bilateral: CTA - Cardiovascular Rhythm: regular (Tachycardic) Heart Sounds: Present: S1 & S2. Absent: gallop, systolic murmur, diastolic murmur - Extremities Extremities: no ischemia, pulses intact, pulses symmetrical, No edema, normal temperature, normal color, Full ROM Peripheral Pulses: within normal limits - Abdominal General gastrointestinal: Present: soft, non-tender, non-distended, normal bowel sounds. Absent: mass (All) - Integumentary Integumentary: Present: clear, warm, dry, normal turgor. Absent: rash - Musculoskeletal Musculoskeletal: strength equal bilaterally - Psychiatric Psychiatric: appropriate mood/affect, intact judgment & insight, memory intact, cooperative - Neurologic Neurologic: CNII-XII intact, no focal deficits, moves all extremities HEART Score - HEART Score Troponin: Troponin T 0.198 ng/mL (0.00-0.029) H* 11/16/21 01:46 Results - Labs CBC & Chem 7: 11/16/21 01:46 11/16/21 01:46 Labs: Abnormal lab results 11/16/21 11/16/21 11/16/21 Range/Units 01:46 01:46 01:46 RBC 3.04 L (3.65-5.03) M/mm3 Hgb 9.2 L (11.8-15.2) gm/dl Hct 29.6 L (35.5-45.6) % MCV 97 H (84-94) fl MCHC 31 L (32-34) % RDW 18.8 H (13.2-15.2) % Plt Count 125 L (140-440) K/mm3 D-Dimer (0-234) ng/mlDDU Carbon Dioxide 17 L (22-30) mmol/L BUN 31 H (9-20) mg/dL Glucose 102 H (75-100) mg/dL Lactic Acid 3.40 H* (0.7-2.0) mmol/L ALT < 5 L (7-56) units/L Alkaline Phosphatase 189 H (35-129) units/L Ammonia (25-60) umol/L Total Creatine Kinase 24 L (55-170) units/L CK-MB (CK-2) Rel Index 4.5 H (0-4) Troponin T 0.198 H* (0.00-0.029) ng/mL NT-Pro-B Natriuret Pep 87322 H (0-900) pg/mL Albumin 2.9 L (3.9-5) g/dL Triglycerides 204 H (2-149) mg/dL HDL Cholesterol 37 L (40-59) mg/dL 11/16/21 11/16/21 Range/Units 01:46 02:49 RBC (3.65-5.03) M/mm3 Hgb (11.8-15.2) gm/dl Hct (35.5-45.6) % MCV (84-94) fl MCHC (32-34) % RDW (13.2-15.2) % Plt Count (140-440) K/mm3 D-Dimer > 81319 H (0-234) ng/mlDDU Carbon Dioxide (22-30) mmol/L BUN (9-20) mg/dL Glucose (75-100) mg/dL Lactic Acid (0.7-2.0) mmol/L ALT (7-56) units/L Alkaline Phosphatase (35-129) units/L Ammonia 13.0 L (25-60) umol/L Total Creatine Kinase (55-170) units/L CK-MB (CK-2) Rel Index (0-4) Troponin T (0.00-0.029) ng/mL NT-Pro-B Natriuret Pep (0-900) pg/mL Albumin (3.9-5) g/dL Triglycerides (2-149) mg/dL HDL Cholesterol (40-59) mg/dL Assessment and Plan Assessment: 1. Altered mental statusunclear etiology 2. Tachycardia 3. Elevated troponin-possibly demand ischemia 4. Hepatic metastases Plan: 1. Patient admitted to the medical floor and placed on telemetry. 2. We will check serial troponin levels. Consult placed to cardiology for evaluation. 3. Patient continue with IV fluid. Covered with empiric IV antibiotics for possible underlying pneumonia. 4. We will resume routine home medications once reconciled. DVT prophylaxis: Subcutaneous heparin CODE STATUS: Full code
[2021-11-16] MEDS: HEPARIN 5,000 UNIT/1 ML VIAL SUB-Q SCH ×2 (06:08→16:04)
[2021-11-16 09:58] VITALS: BP 106/60
--- NOTE | 2021-11-16 11:36 | Discharge Summary ---
Providers - Providers Date of Admission: 11/16/21 05:20 Date of discharge: 11/16/21 Attending physician: CICI HILL 11/16/21 Consult to Cardiac Rehabilitation [CONS] Routine Reason For Exam: Phase I 11/16/21 05:20 Consult to Cardiology [CONS] Routine Consulting Provider: DUY JOYNER Reason For Exam: Elevated troponin Primary care physician: [employer] Hospitalization Reason for admission: AMS Condition: Fair Hospital course: 86-year-old -Portuguese male with known history of renal cancer status post nephrectomy presenting to the emergency room today for evaluation of changes in mental status. Patient's family was said to have found patient altered and subsequently brought to the emergency room for evaluation. Patient states he has had some mild shortness of breath and cough. He denies any fever or chills, denies any chest pain. Upon arrival in the emergency room today, patient was found to be tachycardic which resolved shortly after admission. Work-up in the emergency room today, labs were significant for hemoglobin of 9.2 hematocrit of 29.6. D-dimer was greater than 10,000. Lactic acid was elevated at 3.4. Troponin 0.198. BNP 17,466. Urinalysis was unremarkable. CT of the head did not show any acute findings. Chest x-ray reveals small right pleural effusion with right basilar atelectasis versus other acute infiltrate. CT angiogram of the chest reveals: No evidence of pulmonary embolism. There is widespread hepatic metastatic disease without any distinct primary neuro plasm. The small right pleural effusion/basilar atelectasis was seen on previous CT with recent admission a few days ago and noted to have etiology likely secondary to metastatic disease. Patient underwent ultrasound-guided thoracentesis with removal of approximate 1.6 L and chest x-ray appears to be stable at this time. On the most recent admission, the daughter was counseled about the overall prognosis of her father in regards to the metastatic cancer and how it can be manifested with fatigue, bedbound status and loss of appetite. The topic of hospice was discussed with the daughter and reportedly her willingness to discuss further with the oncologist. I reiterated the same exact discussion with the daughter with regards to overall prognosis is poor and hospice/pall iative care should be entertained. Patient appears to be back to baseline mental status and is alert and oriented x3. Much of the daughters discussion was regarding patient's loss of appetite and not feeling well. I was not able to ascertain any true altered mentation. As noted above, CT scan of the head was negative not showing any metastasis. Therefore, patient is felt to receive maximal hospital benefit and will be discharged home. Dedicated discharge time 32 minutes Disposition: 01 HOME / SELF CARE / HOMELESS Final Discharge Diagnosis (Prints w/discharge instructions): Metastatic renal cancer, history of prostate cancer, adult failure to thrive, cachexia Core Measure Documentation - Palliative Care Palliative Care/ Comfort Measures: Not Applicable - Core Measures Any of the following diagnoses?: none Exam - Constitutional Vitals: Temp Pulse Resp BP Pulse Ox 97.2 F L 95 H 19 106/60 89 11/15/21 23:51 11/16/21 09:20 11/16/21 09:20 11/16/21 09:20 11/16/21 09:20 General appearance: Present: no acute distress, well-nourished - EENT Eyes: Present: PERRL ENT: hearing intact, clear oral mucosa - Neck Neck: Present: supple, normal ROM - Respiratory Respiratory effort: normal Respiratory: bilateral: CTA - Cardiovascular Heart Sounds: Present: S1 & S2. Absent: rub, click - Extremities Extremities: pulses symmetrical, No edema Peripheral Pulses: within normal limits - Abdominal General gastrointestinal: Present: soft, non-tender, non-distended, normal bowel sounds Male genitourinary: Present: normal - Integumentary Integumentary: Present: clear, warm, dry - Musculoskeletal Musculoskeletal: gait normal, strength equal bilaterally - Psychiatric Psychiatric: appropriate mood/affect, intact judgment & insight - Neurologic Neurologic: CNII-XII intact, moves all extremities Plan Activity: advance as tolerated Weight Bearing Status: Weight Bear as Tolerated Diet: regular Follow up with: PRIMARY CARE, [Primary Care Provider] - 3-5 Days
--- NOTE | 2021-11-16 12:22 | Consultation ---
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 He is on palliative care. He was brought to the hospital for altered mental status. On presentation to the hospital, there was a narrow complex tachycardia 125. Laboratory values also showed a mild troponin elevation of 0.19. Cardiology consultation was requested for elevated troponin. The patient appears cachectic, frail, chronically ill, but no acute distress. There was no reported chest pain or unusual shortness of breath. There is no lower extremity edema. There is no orthopnea. His mental status appears to be improved at this time. His ECG on presentation was an ectopic atrial tachycardia 125, with otherwise nonspecific ST and T wave abnormalities. Since then, he has spontaneously returned to a stable sinus rhythm, currently at 80. Past History Past Medical History: other (Prostate and renal cancer with multiple metastasis to the liver and spine) Past Surgical History: Other (History of nephrectomy) Social history: no significant social history Family history: no significant family history Medications and Allergies Allergies Allergy/AdvReac Type Severity Reaction Status Date / Time No Known Allergies Allergy Verified 11/16/21 10:16 Home Medications Medication Instructions Recorded Confirmed Last Taken Type AtorvaSTATin [Lipitor] 40 mg PO QHS 11/11/21 11/11/21 Unknown History Clopidogrel [Plavix] 75 mg PO QDAY 11/11/21 11/11/21 Unknown History Denosumab [Xgeva] 120 mg SUB-Q Q12W 11/11/21 11/11/21 Unknown History Enzalutamide [Xtandi] 40 cap PO 4XD 11/11/21 11/11/21 Unknown History Ferrous Sulfate [Iron 325 MG] 325 mg PO DAILY 11/11/21 11/11/21 Unknown History Furosemide [Lasix] 40 mg PO DAILY 11/11/21 11/11/21 Unknown History Gabapentin 300 mg PO DAILY 11/11/21 11/11/21 Unknown History Isosorbide Mononitrate [Isosorbide 60 mg PO DAILY 11/11/21 11/11/21 Unknown History Mononitrate ER] Leuprolide Acetate [Eligard] 22.5 mg SQ Q12W 11/11/21 11/11/21 Unknown History Magnesium Oxide [Magnesium] 400 mg PO DAILY 11/11/21 11/11/21 Unknown History Metoprolol Succinate [Toprol Xl] 25 mg PO DAILY 11/11/21 11/11/21 Unknown History Potassium Chloride 20 meq PO QDAY 11/11/21 11/11/21 Unknown History Sodium Bicarbonate 650 mg PO BID 11/11/21 11/11/21 Unknown History Tamsulosin [Flomax] 0.4 mg PO QDAY 11/11/21 11/11/21 Unknown History Venlafaxine [Effexor] 75 mg PO DAILY 11/11/21 11/11/21 Unknown History allopurinoL [Zyloprim] 100 mg PO QDAY 11/11/21 11/11/21 Unknown History calcitrioL [Rocaltrol] 0.25 mcg PO 3XW 11/11/21 11/11/21 Unknown History megestroL [Megestrol] 400 mg PO DAILY 11/11/21 11/11/21 Unknown History traMADoL [Ultram 50 MG tab] 50 mg PO Q6HR PRN 11/11/21 11/11/21 Unknown History Active Meds: Active Medications Acetaminophen (Acetaminophen 325 Mg Tab) 650 mg PO Q4H PRN PRN Reason: Pain MILD(1-3)/Fever >100.5/STROUD Aspirin (Aspirin Ec 81 Mg Tab) 81 mg PO QDAY [facility] Diltiazem HCl (Diltiazem 30 Mg Tab) 30 mg PO BID [facility] Heparin Sodium (Porcine) (Heparin 5,000 Unit/1 Ml Vial) 5,000 unit SUB-Q Q8HR [facility] Last Admin: 11/16/21 06:08 Dose: 5,000 unit Sodium Chloride (Nacl 0.9% 1000 Ml) 1,000 mls @ 125 mls/hr IV DIRECT [facility] Magnesium Hydroxide (Magnesium Hydroxide (Mom) Oral Liqd Udc) 30 ml PO Q4H PRN PRN Reason: Constipation Morphine Sulfate (Morphine 2 Mg/1 Ml Inj) 2 mg IV Q4H PRN PRN Reason: Pain, Moderate (4-6) Morphine Sulfate (Morphine 4 Mg/1 Ml Inj) 4 mg IV Q4H PRN PRN Reason: Pain , Severe (7-10) Morphine Sulfate (Morphine 4 Mg/1 Ml Inj) 2 mg IV Q5MIN PRN PRN Reason: Chest Pain unrelieved by NTG Ondansetron HCl (Ondansetron 4 Mg/2 Ml Inj) 4 mg IV Q8H PRN PRN Reason: Nausea And Vomiting Sodium Chloride (Sodium Chloride 0.9% 10 Ml Flush Syringe) 10 ml IV BID [facility] Last Admin: 11/16/21 09:56 Dose: 10 ml Sodium Chloride (Sodium Chloride 0.9% 10 Ml Flush Syringe) 10 ml IV PRN PRN PRN Reason: LINE FLUSH Tramadol HCl (Tramadol 50 Mg Tab) 50 mg PO Q6H PRN PRN Reason: Pain, Moderate (4-6) Review of Systems Cardiovascular: no chest pain, no orthopnea, no palpitations, no rapid/irregular heart beat, no edema, no syncope, no lightheadedness, no shortness of breath Physical Examination Vital Signs Temp Pulse Resp BP Pulse Ox 97.2 F L 128 H 22 105/69 100 11/15/21 23:51 11/15/21 23:51 11/15/21 23:51 11/15/21 23:51 11/15/21 23:51 General appearance: no acute distress, cachectic, other (Chronically ill- appearing) HEENT: Positive: PERRL Neck: Positive: neck supple Cardiac: Positive: Reg Rate and Rhythm Lungs: Positive: Decreased Breath Sounds Neuro: Positive: Weakness (Generalized lethargy) Abdomen: Positive: Soft Male genitourinary: Positive: deferred Skin: Positive: Clear Extremities: Absent: edema Results 11/16/21 01:46 11/16/21 01:46 Cardiac Enzymes 11/16/21 Range/Units 01:46 AST 17 (5-40) units/L CK-MB (CK-2) 1.1 (0.0-4.0) ng/mL Coagulation 11/16/21 Range/Units 01:46 PT 14.3 (12.2-14.9) Sec. INR 0.97 (0.87-1.13) Lipids 11/16/21 Range/Units 01:46 Triglycerides 204 H (2-149) mg/dL Cholesterol 176 (50-199) mg/dL HDL Cholesterol 37 L (40-59) mg/dL Cholesterol/HDL Ratio 4.75 % CBC 11/16/21 Range/Units 01:46 WBC 5.0 (4.5-11.0) K/mm3 RBC 3.04 L (3.65-5.03) M/mm3 Hgb 9.2 L (11.8-15.2) gm/dl Hct 29.6 L (35.5-45.6) % Plt Count 125 L (140-440) K/mm3 Lymph # (Auto) 1.2 (1.2-5.4) K/mm3 [place] # (Auto) 0.3 (0.0-0.8) K/mm3 Eos # (Auto) 0.1 (0.0-0.4) K/mm3 Baso # (Auto) 0.0 (0.0-0.1) K/mm3 Comprehensive Metabolic Panel 11/16/21 Range/Units 01:46 Sodium 137 (137-145) mmol/L Potassium 4.8 (3.6-5.0) mmol/L Chloride 100.6 (98-107) mmol/L Carbon Dioxide 17 L (22-30) mmol/L BUN 31 H (9-20) mg/dL Creatinine 1.3 (0.8-1.3) mg/dL Glucose 102 H (75-100) mg/dL Calcium 10.1 (8.4-10.2) mg/dL AST 17 (5-40) units/L ALT < 5 L (7-56) units/L Alkaline Phosphatase 189 H (35-129) units/L Total Protein 7.3 (6.3-8.2) g/dL Albumin 2.9 L (3.9-5) g/dL EKG interpretations - EKG Supraventricular dysrhythmia: ectopic atrial tachycardi Assessment and Plan - Patient Problems (1) Ectopic atrial tachycardia Current Visit: Yes Status: Acute Plan to address problem: Patient with advanced renal and prostate cancer with multiple metastasis to the liver and spine, on palliative management. Presented to the emergency room with altered mental status. EKG showed ectopic atrial tachycardia at 125, now resolved, in stable sinus rhythm. We will empirically treat with diltiazem 30 mg p.o. twice daily, otherwise conservative cardiac management. Patient is not a candidate for aggressive cardiac evaluation and therapies.
[2021-11-16] MEDS ORDERED: dilTIAZem 30 MG TAB PO SCH (22:00)
[2021-11-17] MEDS ORDERED: ASPIRIN EC 81 MG TAB PO SCH (10:00)
[2021-11-17] MEDS ORDERED: ASPIRIN EC 325 MG TAB PO SCH (10:00)
--- NOTE | 2021-11-18 18:08 | Electrocardiograph Report ---
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
--- NOTE | 2021-11-18 18:13 | Electrocardiograph Report ---
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
== END 2021-11-16 19:05 | disposition home or self-care (01) ==
LOC: ED 23:35 → 4A 11-16 05:20 → INTOOBSV 11-16 05:20 → 4A 11-16 08:23
PROVIDERS: ADMIT Internal Medicine Geriatric Medicine; ATTEND Hospitalist
DX: C79.00 Secondary malignant neoplasm of unspecified kidney and renal pelvis (principal); Z20.822 Contact with and (suspected) exposure to COVID-19; R41.82 Altered mental status, unspecified; C78.7 Secondary malignant neoplasm of liver and intrahepatic bile duct; R00.0 Tachycardia, unspecified; R77.8 Other specified abnormalities of plasma proteins; R62.7 Adult failure to thrive; R64 Cachexia; Z79.899 Other long term (current) drug therapy; Z98.890 Other specified postprocedural states; Z79.82 Long term (current) use of aspirin; Z68.23 Body mass index [BMI] 23.0-23.9, adult; Z85.46 Personal history of malignant neoplasm of prostate
CPT/HCPCS: 36415; 70450; 71045; 71275; 80053; 80061; 81001; 82140; 82550; 82553; 83880; 84439; 84443; 84484; 85025; 85379; 85610; 87040; 93005; 96365; 96368; 96372; 99285; G0378; J0456; J0696; J1644; Q9967; U0003; 80320; G0480